=== PATIENT | male | born 1980 | race Two or more races ===

== ENCOUNTER 2021-09-21 14:09 | Emergency (ER) | payer OTHER ==
[~2021-09-21] VITALS: Ht 160 cm; Wt 56.8 kg
[2021-09-21] MEDS: DiphenhydrAMINE HCL 50 MG/ML VIAL IM ONE (15:44)
[2021-09-21] MEDS: PredniSONE 20 MG TABLET PO ONE (15:44)
[2021-09-21] MEDS ORDERED: DiphenhydrAMINE HCL 50 MG/ML VIAL IVP ONE (15:45)
[2021-09-21 18:08] VITALS: BP 117/80
== END 2021-09-21 18:09 | disposition home or self-care (01) ==
LOC: EMS 14:09
DX: L29.9 Pruritus, unspecified (principal); T39.015A Adverse effect of aspirin, initial encounter; Y92.89 Other specified places as the place of occurrence of the external cause
CPT/HCPCS: 96372; 99283; J1200; J7512